=== PATIENT | male | born 1985 | race Caucasian/White ===

== ENCOUNTER 2018-05-22 10:24 | Emergency (ER) | payer OTHER ==
[2018-05-22] MEDS ORDERED: Bupivacaine 0.5% 10 ML SDV INJECT ONE (10:30)
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
== END 2018-05-22 12:17 | disposition home or self-care (01) ==
LOC: MW.ED 10:24
DX: S62.643A Nondisplaced fracture of proximal phalanx of left middle finger, initial encounter for closed fracture (principal); Z88.2 Allergy status to sulfonamides; V47.6XXA Car passenger injured in collision with fixed or stationary object in traffic accident, initial encounter
CPT/HCPCS: 64450; 73140; 99284; G0390; J3490